=== PATIENT | male | born 1995 | race Caucasian/White ===

== ENCOUNTER 2020-09-11 13:43 | Emergency (ER) | payer OTHER, SELFPAY ==
--- NOTE | ~2020-09-11 | XR_ITS ---
EXAMINATION: XR chest 2V EXAM DATE: 09/11/2020 14:31 INDICATION: Midsternal and posterior chest pain. TECHNIQUE: Frontal and lateral projections of the chest obtained and reviewed. There is no prior sally dy for comparison. FINDINGS: The lungs are clear. There are no pleural effusions. The cardiomediastinal silhouette is within normal limits. There is no pneumothorax suspected. The bones and soft tissues are unremarkab le. IMPRESSION: No acute cardiopulmonary findings. Reviewed, dictated and finalized at location A.
--- NOTE | ~2020-09-11 | CT_ITS ---
EXAMINATION: CTA chest PE protocol DATE: 09/11/2020 16:18 INDICATION: Tachycardia. Generalized chest pain. TECHNIQUE: Computed tomography (CT) pulmonary angiogram of the chest was performed with 100 mL Omnipa que-350 intravenous contrast. Additional 3D reconstructions utilizing coronal maximum intensity proje ction (MIP) were performed. Automated exposure control and iterative reconstruction technique were em ployed. The dose-length product was 157.54 mGy-cm. COMPARISON: None FINDINGS: Excellent contrast opacification of the pulmonary arteries. There is mild streak artifact from dense contrast in the superior vena cava and right atrium. No significant respiratory motion artifact yield ing diagnostic quality study which demonstrates no pulmonary embolism. Lungs are clear with no pneumo landen, pulmonary edema or other pulmonary infiltrates. No pleural effusion or pneumothorax. Heart size is normal. Thoracic aorta is normal in caliber with no dissection. No pathologically enlarged thoraci c lymphadenopathy. Visualized upper abdomen is unremarkable. Small Schmorl's node along the inferior endplate of T11. IMPRESSION: 1. Normal study. No pulmonary embolism or other acute cardiopulmonary disease. Reviewed, dictated and finalized at location A.
--- NOTE | 2020-09-11 13:47 | ECG_ITS ---
Measurements Intervals [place] Rate: 103 P: 78 ID: 108 QRS: 86 QRSD: 104 T: 52 QT: 320 QTc: 420 Interpretive Statements SINUS TACHYCARDIA WITH SHORT ID INTERVAL INCOMPLETE RIGHT BUNDLE BRANCH BLOCK BORDERLINE ECG Electronically Signed On 09-11-2020 20:00:10 CDT by Mark Gillette D.O.
[2020-09-11 13:48] VITALS: BP 165/78; PULSE 120; RESP 20; TEMP 37.1; O2SAT 100
[2020-09-11 14:05] LABS: Basophils Percent Auto 0.5 % (0.2-1.2); Eosinophils Absolute Auto 0.2 K/mm3 (0-0.3); Eosinophils Percent Auto 3.2 % (0-4.4); Hematocrit 42.5 % (42.0-52.0); Hemoglobin 14.6 g/dL (14.0-18.0); Immature Granulocyte Absolute 0.01 K/mm3 (0.00-0.031); Immature Granulocyte Percent A 0.2 % (0-0.5); Lymphocytes Absolute Auto 2.84 K/mm3 (0.9-3.2); Lymphocytes Percent Auto 47.2 % (18.3-44.2); Mean Corpuscular HGB Conc 34.4 g/dl (32-36); Mean Corpuscular Hemoglobin 29.4 pg (26-34); Mean Corpuscular Volume 85.5 fl (80-100); Monocytes Absolute Auto 0.5 K/mm3 (0.1-0.6); Monocytes Percent Auto 7.8 % (2.6-8.5); Neutrophils Absolute Auto 2.5 K/mm3 (1.3-6.7); Neutrophils Percent Auto 41.1 % (45.5-73.1); Platelet Count Result 218 k/mm3 (150-375); Red Blood Count 4.97 M/mm3 (4.6-6.20); Red Cell Distribution Width 12.2 % (11.5-14.5)
[2020-09-11 14:16] LABS: INR 1.1; Prothrombin Time 14.7 Seconds (11.1-14.7)
[2020-09-11 14:18] LABS: Anion Gap 11 mmol/L (8-16); Blood Urea Nitrogen 11 mg/dL (9-20); Calcium 9.7 mg/dL (8.4-10.2); Carbon Dioxide 26 mmol/L (22-30); Chloride 107 mmol/L (98-107); Estimated CRCL calculation 86 ml/min; Estimated Glomerular Filt Rate > 60; Glucose 104 mg/dL (75-110); Potassium 3.5 mmol/L (3.4-5.0); Sodium 144 mmol/L (137-145)
[2020-09-11 14:29] LABS: Troponin I < 0.012 ng/mL (0.000-0.034)
[2020-09-11 15:52] VITALS: BP 111/72; PULSE 93; RESP 20; O2SAT 100
--- NOTE | 2020-09-11 16:00 | ED.GENADULT ---
HPI - General Adult General Chief complaint: Chest Pain Stated complaint: chest pain Time Seen by Provider: 09/11/20 15:24 Source: patient Mode of arrival: ambulatory Limitations: no limitations History of Present Illness HPI narrative: Patient presents for evaluation of chest discomfort for last 3 weeks. He indicates he has an aching sensation on either side of his sternum that is occurred intermittently. Symptoms last minutes and are rated 6/10 in severity. He denies pain per se. He has experienced post-nasal drainage, sensation of sputum in the back of his throat and a cough which is mostly nonproductive, although he does have white sputum production from time to time. He denies any fever, chills, shortness of breath. He does smoke approximately 1/3 ppd and also reports smoking marijuana. His mom brought him to the emergency department today after he contacted her. She believes the patient is concerned that he may have Covid as his father and grandmother with whom he lives have experienced a cough. Both of those family members are smokers. Related Data Allergies Allergy/AdvReac Type Severity Reaction Status Date / Time No Known Allergies Allergy Verified 09/11/20 15:59 Review of Systems Review of Systems: Narrative: CONSTITUTIONAL: Denies fever, chills, or sweats. EYES: Denies visual changes, redness, or discharge. ENT: Denies rhinorrhea, congestion, sore throat, or otalgia. CARDIOVASCULAR: Reports chest discomfort but denies overt pain. Denies palpitations and edema. RESPIRATORY: Reports cough which is primarily nonproductive with occasional white sputum production. Denies shortness of breath. GASTROINTESTINAL: Denies abdominal pain, nausea, vomiting, or diarrhea. GENITOURINARY: Denies dysuria or hematuria. SKIN: Denies rash or itching. MUSCULOSKELETAL: Denies back pain, joint pain, or myalgia. NEUROLOGIC: Denies headache, numbness, dizziness, or weakness. PSYCHIATRIC: Denies anxiety or depression. [facility] Past Medical History Medical History Anxiety Tobacco use Surgical History Surgical History No pertinent past surgical history Family History Family History Father Tobacco use Social History Social History (Reviewed 06/12/21 @ 16:01 by Mitchell Morocho, MEDIA SERVICES COORDINATOR, Justin Smoking status: Current every day smoker Additional smoking assessment comments: / ppd Substance use type: marijuana Living arrangements: with family Occupation/Education: unemployed Gender identity (if verbalized by the patient): Male Spiritual care concerns: No Exam Narrative: Exam Narrative: GENERAL: Well-appearing, well-nourished, and in no acute distress. HEAD: Normocephalic, atraumatic. EYES: PERRLA and EOMI. ENT: Nares clear, no rhinorrhea or epistaxis. Mucous membranes moist. Oropharynx without tonsillar hypertrophy exudate or other lesions. Bilateral TMs pearly white nonbulging NECK: Supple. No adenopathy or masses. No carotid bruits or JVD CHEST: Clear to auscultation. No respiratory distress. No wheezes rales or rhonchi HEART: Intermittent mild tachycardia. No murmur heard. Normal peripheral pulses. ABDOMEN: Soft, nontender, nondistended, normal active bowel sounds. EXTREMITIES: Normal range of motion. No edema. SKIN: Warm, dry, no rash. NEURO: No focal deficits. Alert and oriented x3. PSYCH: Normal mood and affect. Course Course Emergency Course: This is a 24-year-old male who presented with complaints of chest discomfort. EKG with no acute ischemic changes. Chest x-ray was negative. CTA of the chest was negative for PE. Symptoms are consistent with anxiety. Plans to dc with script for vistaril and follow up next week with PCP. He should return for worsening symptoms. Pt in agreement with plan of care. Vital Signs Vital signs: Vital Signs Temperature 37.1 C 09/11/20 13:48 Puls
[2020-09-11 18:35] VITALS: BP 110/88; PULSE 88; RESP 20; O2SAT 100
[2020-09-13 17:43] LABS: SARS-CoV-2 RNA PCR Negative
== END 2020-09-11 19:23 | disposition home or self-care (01) ==
PROVIDERS: Emergency Medicine; Emergency Provider Nurse Practitioner; PCP Family Medicine
DX: R07.89 Other chest pain (principal); F43.9 Reaction to severe stress, unspecified; Z20.822 Contact with and (suspected) exposure to COVID-19; F17.210 Nicotine dependence, cigarettes, uncomplicated; R00.0 Tachycardia, unspecified; I45.10 Unspecified right bundle-branch block
CPT/HCPCS: 36415; 71046; 71275; 80048; 84484; 85025; 85610; 85730; 93005; 99284; C9803; Q9967; U0003; U0005

== ENCOUNTER 2022-01-05 19:50 | Emergency (ER) | payer OTHER, SELFPAY ==
[2022-01-05 19:58] VITALS: BP 118/55; PULSE 95; RESP 16; TEMP 36.8; O2SAT 100
--- NOTE | 2022-01-05 19:59 | ED.MALEGU ---
HPI - Male Genitourinary General Chief complaint: Urogenital-Male Stated complaint: STD Test Time Seen by Provider: 01/05/22 20:04 Source: patient and RN notes reviewed Mode of arrival: ambulatory Limitations: no limitations History of Present Illness HPI Narrative: 26-year-old male presents to the [facility] with complaints of having gonorrhea. This tested and treated a few weeks ago, unknown emergency room. Girlfriend was not tested nor treated. Comes in today because he started having penile discharge again. MD Complaint: penile discharge and possible STD exposure Related Data Home Medications Medication Instructions Recorded Confirmed No Home Medications 01/05/22 01/05/22 Allergies Allergy/AdvReac Type Severity Reaction Status Date / Time No Known Allergies Allergy Verified 01/05/22 19:53 Review of Systems Review of Systems: All systems reviewed & are unremarkable except as noted in HPI and below Constitutional: Constitutional: Reports no additional constitutional complaints, Denies chills and Denies fever(s) Eyes: Eyes: Reports no additional eye complaints ENT: Reports system reviewed and no additional complaints, except as documented Cardiovascular: Cardiovascular: Reports no additional cardiovascular complaints Respiratory: Respiratory: Reports no additional respiratory complaints Gastrointestinal: Gastrointestinal: Reports no additional gastrointestinal complaints Genitourinary: Genitourinary: Reports as per HPI, Reports penile discharge, Denies scrotal swelling, Denies testicular mass, Denies testicular pain, Denies urinary frequency and Denies urinary urgency Musculoskeletal: Musculoskeletal: Reports no additional musculoskeletal complaints Integumentary/Breasts: Skin/Breast: Reports system reviewed and no additional complaints, except as docu Neurologic: Reports system reviewed and no additional complaints, except as documented Psychiatric: Psychiatric: Reports no additional psychiatric complaints Allergic/Immunologic: Allergic/Immunologic: Reports no additional allergic/immunologic complaints PMFSH Past Medical History Medical History Anxiety Tobacco use Surgical History Surgical History No pertinent past surgical history Family History Family History Father Tobacco use Social History Social History Smoking status: Current every day smoker Additional smoking assessment comments: 1/3 ppd Substance use type: marijuana Gender identity (if verbalized by the patient): Male Spiritual care concerns: No Comments At the time of my signature, I reviewed and agree with the nursing past medical, surgical, social, and family history. There is no relevant family history pertinent to the patient complaint. Exam Const: General: healthy appearing, no acute distress, alert and well nourished Nutritional Appearance: thin Orientation/consciousness: patient oriented x3 Limitations: no limitations HENMT: Head: normal to inspection Ears: external ears normal Eyes: General: appearance normal, both eyes and all related structures Pupils: Equal, round and reactive pupils present Neck: Neck: normal visual inspection, no lymphadenopathy and no meningeal signs Chest: Chest palpation & inspection: normal inspection of the chest Resp: Effort & Inspection: normal respiratory effort and no use of accessory muscles Auscultation: clear to auscultation bilaterally, no crackles, no rales, no rhonchi and no wheezes Cardio: Rate: regular rate Rhythm: regular rhythm GI: GI Palp: Yes Soft to palpation and No Tenderness to palpation present (GI) : General: Yes no CVA tenderness Male General Exam: No ecchymosis, No edema, No erythema, No lacerations, No Genital lesions present and No tenderness Penis: Yes circumcised Meatus:
[2022-01-05] MEDS: cefTRIAXone 500 MG, LIDOCAINE HCL 1% LOCAL INJ 1 ML IM (20:18)
== END 2022-01-05 20:34 | disposition home or self-care (01) ==
PROVIDERS: Emergency Provider Nurse Practitioner
DX: A54.9 Gonococcal infection, unspecified (principal); F17.210 Nicotine dependence, cigarettes, uncomplicated; F12.90 Cannabis use, unspecified, uncomplicated
CPT/HCPCS: 87491; 87591; 87661; 96372; 99213; G0463; J0696